=== PATIENT | female | born 1990 | race Hispanic/Latino ===

== ENCOUNTER 2020-05-07 14:58 | Emergency (ER) | payer MEDICAID, OTHER ==
[2020-05-07] MEDS ORDERED: HYDROCODONE/ACETAMINOPHEN 5/325 MG TAB ONE (16:27)
[2020-05-07] MEDS ORDERED: ONDANSETRON ODT 4 MG TAB ONE (16:27)
== END 2020-05-07 17:30 | disposition home or self-care (01) ==
LOC: EDH 14:58
DX: S60.222A Contusion of left hand, initial encounter (principal); S60.221A Contusion of right hand, initial encounter; S80.01XA Contusion of right knee, initial encounter; V49.49XA Driver injured in collision with other motor vehicles in traffic accident, initial encounter; Y93.89 Activity, other specified; Y92.89 Other specified places as the place of occurrence of the external cause; Y99.8 Other external cause status
CPT/HCPCS: 73090; 73130; 73562; 81025

== ENCOUNTER 2020-10-13 19:48 | Emergency (ER) | payer OTHER ==
[2020-10-13] MEDS ORDERED: L.E.T. GEL 4%/0.5%/0.18% 3ML 3 ML/SYR SYG TP ONE (20:14)
[2020-10-13] MEDS ORDERED: OCTYL 2-CYANOACRYLATE 1 EACH TP ONE (21:10)
[2020-10-13] MEDS ORDERED: NEOMY SULF/BACITRA/POLYMYXIN B 1 EACH PACKET TP ONE (21:38)
== END 2020-10-13 21:49 | disposition home or self-care (01) ==
LOC: EDH 19:48
DX: S61.011A Laceration without foreign body of right thumb without damage to nail, initial encounter (principal); W25.XXXA Contact with sharp glass, initial encounter; Y93.G1 Activity, food preparation and clean up; Y92.89 Other specified places as the place of occurrence of the external cause; Y99.8 Other external cause status